=== PATIENT | female | born 1935 | race Caucasian/White ===

== ENCOUNTER 2017-11-05 14:54 | Emergency (ER) | payer OTHER, SELFPAY ==
[~2017-11-05] VITALS: Ht 152.4 cm; Wt 63.5 kg
[~2017-11-05 14:54] MED LIST: ALPR.5 PO; ALPR1 PO; ASPI81CH PO; BISA5EC; CEPH500 PO; CHLO25B PO; CHOL10002 PO; CITA20 PO; CRANBERRY 6,001 EACH; CYAN1000 PO; Celexa10 MG PO; DIPH25 PO; ESTR.1TPBW; ESTR.1TPBW TOP; ESTR.75 PO; FAMO20 PO; FISH1000; GABA800 PO; HYDRA25 PO; LEVSOD125 PO; LEVSOD175 PO; LISI20 PO; METH10 PO; METR70GEL VAG; MIRT15 PO; MIRT30 PO; MULTI VITAMIN1 EACH PO; MYRBETRIQ50 MG PO; OXYACE10 PO; OXYC10TA19 PO; PRED20 PO; SIMV10 PO; SIMV20 PO
[2017-11-05] MEDS ORDERED: MYRBETRIQ50 MG PO (15:42)
[2017-11-05 15:43] LABS: BASOPHILS ABSOLUTE AUTO 0.03 K/mm3 (0.00-0.23); BASOPHILS PERCENT AUTO 1 % (0-2); EOSINOPHILS PERCENT AUTO 0 % (0-6); Hematocrit 41.8 % (33.0-51.0); Hemoglobin 13.5 g/dL (11.5-16.0); IMMATURE GRAN ABSOLUTE AUTO 0.01 K/mm3 (0.00-0.10); IMMATURE GRAN PERCENT AUTO 0 % (0-1); LYMPHOCYTES ABSOLUTE AUTO 0.59 K/mm3 (0.84-5.20); LYMPHOCYTES PERCENT AUTO 11 % (21-46); MONOCYTES ABSOLUTE AUTO 0.32 K/mm3 (0.16-1.47); MONOCYTES PERCENT AUTO 6 % (4-13); Mean Corpuscular HGB Conc 32.3 g/dL (31.5-36.5); Mean Corpuscular Volume 90 fL (80-100); Mean Platelet Volume 10.7 fL (9.1-12.4); NEUTROPHILS ABSOLUTE AUTO 4.44 K/mm3 (1.96-9.15); NEUTROPHILS PERCENT AUTO 82 % (41-73); Platelet Count 265 K/mm3 (150-400); RDW Coefficient Variation 16.6 % (11.7-14.2); RDW Standard Deviation 54.9 fL (35.1-46.3); Red Blood Cell Count 4.66 M/mm3 (3.80-5.20); White Blood Cell Count 5.39 K/mm3 (4.00-11.30)
[2017-11-05] MEDS ORDERED: SIMV10 PO (15:43)
[2017-11-05 15:56] LABS: Alanine Aminotransfer (ALT/SGP 23 U/L (12-78); Albumin, Blood 3.8 g/dL (3.4-5.0); Albumin/Globulin Ratio 1.1 (0.8-1.8); Alk Phos 73 U/L (50-136); Anion Gap 11 mmol/L (6-16); Aspartate Aminotrans (AST/SGOT 36 U/L (12-37); Bilirubin, Total 0.9 mg/dL (0.1-1.0); Blood Urea Nitrogen 13 mg/dL (8-24); Bun/Creatinine Ratio 18.2 (12.0-20.0); CO2, Blood 22 mmol/L (21-32); Calcium, Blood 9.2 mg/dL (8.5-10.1); Chloride, Blood 105 mmol/L (98-108); Creatinine, Blood 0.72 mg/dL (0.40-1.00); Globulin, Blood 3.5 g/dL (2.2-4.0); Glomerular Filtration Rate >60 (60-); Glucose, Blood 129 mg/dL (70-99); Potassium, Blood 3.8 mmol/L (3.5-5.5); Sodium, Blood 138 mmol/L (136-145); Total Protein, Blood 7.3 g/dL (6.4-8.2)
[2017-11-05 17:27] LABS: Source, Urine Catheter
[2017-11-05 17:31] LABS: Appearance, Urine Hazy (Clear); Bilirubin, Urine Neg (Neg); Blood, Urine 3+ (Neg); Color, Urine Yellow (P-Yellow); Glucose Qualitative, Urine Neg (Neg); Ketones, Urine 4+ (Neg); Leukocyte Esterase, Urine 2+ (Neg); Nitrite, Urine Neg (Neg); Protein, Urine 1+ (Neg); Specific Gravity, Urine 1.015 (1.003-1.022); Urobilinogen, Urine 1+ (Normal)
[2017-11-05 17:38] LABS: Squamous Epithelial Cells Not Seen /hpf (Few)
[2017-11-05 17:39] LABS: Amorphous Mod (0-Heavy); Bacteria Mod /hpf
[2017-11-05] MEDS ORDERED: CEPH500 PO (18:15)
[2017-11-06] MEDS ORDERED: ONDA4ODT MM (09:41)
== END 2017-11-05 18:31 | disposition home or self-care (01) ==
LOC: ER 14:54
PROVIDERS: Physician Assistant
DX: N39.0 Urinary tract infection, site not specified (principal); F03.90 Unspecified dementia, unspecified severity, without behavioral disturbance, psychotic disturbance, mood disturbance, and anxiety; F41.9 Anxiety disorder, unspecified; E78.00 Pure hypercholesterolemia, unspecified; Z88.1 Allergy status to other antibiotic agents; Z88.2 Allergy status to sulfonamides; Z88.8 Allergy status to other drugs, medicaments and biological substances; Z79.899 Other long term (current) drug therapy; Z79.82 Long term (current) use of aspirin; Z90.710 Acquired absence of both cervix and uterus; Z90.49 Acquired absence of other specified parts of digestive tract
CPT/HCPCS: 36415; 51701; 71045; 80053; 81001; 83690; 84484; 85025; 87077; 87086; 87186; 93005; 93010; 99284

== ENCOUNTER 2017-11-05 18:58 | Inpatient (IN) | payer OTHER, SELFPAY ==
[~2017-11-05] VITALS: Ht 152.4 cm; Wt 74.1 kg
[2017-11-06] MEDS ORDERED: ONDA4ODT MM (09:41)
[2017-11-07 09:24] LABS: BASOPHILS ABSOLUTE AUTO 0.04 K/mm3 (0.00-0.23); BASOPHILS PERCENT AUTO 1 % (0-2); EOSINOPHILS ABSOLUTE AUTO 0.02 K/mm3 (0.00-0.68); EOSINOPHILS PERCENT AUTO 0 % (0-6); Hematocrit 39.3 % (33.0-51.0); Hemoglobin 12.9 g/dL (11.5-16.0); IMMATURE GRAN ABSOLUTE AUTO 0.02 K/mm3 (0.00-0.10); IMMATURE GRAN PERCENT AUTO 0 % (0-1); LYMPHOCYTES ABSOLUTE AUTO 1.09 K/mm3 (0.84-5.20); LYMPHOCYTES PERCENT AUTO 18 % (21-46); MONOCYTES ABSOLUTE AUTO 0.49 K/mm3 (0.16-1.47); MONOCYTES PERCENT AUTO 8 % (4-13); Mean Corpuscular HGB 29.9 pg (26.0-34.0); Mean Corpuscular HGB Conc 32.8 g/dL (31.5-36.5); Mean Corpuscular Volume 91 fL (80-100); NEUTROPHILS ABSOLUTE AUTO 4.58 K/mm3 (1.96-9.15); NEUTROPHILS PERCENT AUTO 73 % (41-73); Platelet Count 273 K/mm3 (150-400); RDW Coefficient Variation 17.5 % (11.7-14.2); RDW Standard Deviation 58.6 fL (35.1-46.3); Red Blood Cell Count 4.32 M/mm3 (3.80-5.20); White Blood Cell Count 6.24 K/mm3 (4.00-11.30)
[2017-11-07 09:42] LABS: Alanine Aminotransfer (ALT/SGP 20 U/L (12-78); Albumin, Blood 3.5 g/dL (3.4-5.0); Albumin/Globulin Ratio 1.1 (0.8-1.8); Alk Phos 59 U/L (50-136); Anion Gap 8 mmol/L (6-16); Aspartate Aminotrans (AST/SGOT 24 U/L (12-37); Bilirubin, Total 0.4 mg/dL (0.1-1.0); Blood Urea Nitrogen 14 mg/dL (8-24); Bun/Creatinine Ratio 18.1 (12.0-20.0); CO2, Blood 26 mmol/L (21-32); Calcium, Blood 8.7 mg/dL (8.5-10.1); Chloride, Blood 107 mmol/L (98-108); Creatinine, Blood 0.77 mg/dL (0.40-1.00); Globulin, Blood 3.2 g/dL (2.2-4.0); Glomerular Filtration Rate >60 (60-); Glucose, Blood 105 mg/dL (70-99); Potassium, Blood 3.7 mmol/L (3.5-5.5); Sodium, Blood 141 mmol/L (136-145); Total Protein, Blood 6.7 g/dL (6.4-8.2)
[2017-11-08 06:06] LABS: BASOPHILS ABSOLUTE AUTO 0.05 K/mm3 (0.00-0.23); BASOPHILS PERCENT AUTO 1 % (0-2); EOSINOPHILS ABSOLUTE AUTO 0.04 K/mm3 (0.00-0.68); EOSINOPHILS PERCENT AUTO 1 % (0-6); Hematocrit 37.8 % (33.0-51.0); Hemoglobin 12.2 g/dL (11.5-16.0); IMMATURE GRAN ABSOLUTE AUTO 0.01 K/mm3 (0.00-0.10); IMMATURE GRAN PERCENT AUTO 0 % (0-1); LYMPHOCYTES ABSOLUTE AUTO 1.59 K/mm3 (0.84-5.20); LYMPHOCYTES PERCENT AUTO 25 % (21-46); MONOCYTES ABSOLUTE AUTO 0.73 K/mm3 (0.16-1.47); MONOCYTES PERCENT AUTO 11 % (4-13); Mean Corpuscular HGB 29.6 pg (26.0-34.0); Mean Corpuscular HGB Conc 32.3 g/dL (31.5-36.5); Mean Corpuscular Volume 92 fL (80-100); Mean Platelet Volume 10.9 fL (9.1-12.4); NEUTROPHILS ABSOLUTE AUTO 4.04 K/mm3 (1.96-9.15); NEUTROPHILS PERCENT AUTO 63 % (41-73); Platelet Count 231 K/mm3 (150-400); RDW Coefficient Variation 17.2 % (11.7-14.2); RDW Standard Deviation 58.1 fL (35.1-46.3); Red Blood Cell Count 4.12 M/mm3 (3.80-5.20); White Blood Cell Count 6.46 K/mm3 (4.00-11.30)
[2017-11-08 06:31] LABS: Anion Gap 8 mmol/L (6-16); Blood Urea Nitrogen 13 mg/dL (8-24); Bun/Creatinine Ratio 16.9 (12.0-20.0); CO2, Blood 26 mmol/L (21-32); Calcium, Blood 8.3 mg/dL (8.5-10.1); Chloride, Blood 106 mmol/L (98-108); Creatinine, Blood 0.77 mg/dL (0.40-1.00); Glomerular Filtration Rate >60 (60-); Glucose, Blood 90 mg/dL (70-99); Potassium, Blood 3.6 mmol/L (3.5-5.5); Sodium, Blood 140 mmol/L (136-145)
[2017-11-09] MEDS ORDERED: Colace100 MG PO (10:21)
[2017-11-09] MEDS ORDERED: PANT20 PO (10:25)
[2017-11-09] MEDS ORDERED: ONDA4ODT MM (10:27)
[2017-11-09] MEDS ORDERED: AMLO5 PO (10:27)
[2017-11-11] MEDS ORDERED: CEPH500 PO (09:08)
== END 2017-11-11 11:12 | disposition home or self-care (01) | DRG 690 ==
LOC: ER 18:58 → MEDS 18:59 → EDPENDDIS 11-06 08:49 → ENPENDDIS 11-06 08:49 → MEDS 11-08 12:30 → EDPENDDISTM 11-09 09:48 → EDPENDDISDT 11-09 09:48 → EDPENDDIS 11-09 09:48 → MEDS 11-11 11:12
PROVIDERS: Internal Medicine
DX: N39.0 Urinary tract infection, site not specified (principal); G30.9 Alzheimer's disease, unspecified; F02.80 Dementia in other diseases classified elsewhere, unspecified severity, without behavioral disturbance, psychotic disturbance, mood disturbance, and anxiety; B96.20 Unspecified Escherichia coli [E. coli] as the cause of diseases classified elsewhere; I10 Essential (primary) hypertension; R26.9 Unspecified abnormalities of gait and mobility; R11.2 Nausea with vomiting, unspecified; E78.5 Hyperlipidemia, unspecified; E03.9 Hypothyroidism, unspecified; K21.9 Gastro-esophageal reflux disease without esophagitis; F41.9 Anxiety disorder, unspecified; E66.9 Obesity, unspecified; Z68.29 Body mass index [BMI] 29.0-29.9, adult; Z86.711 Personal history of pulmonary embolism; Z87.440 Personal history of urinary (tract) infections; Z88.1 Allergy status to other antibiotic agents; Z88.2 Allergy status to sulfonamides; Z88.8 Allergy status to other drugs, medicaments and biological substances; Z79.82 Long term (current) use of aspirin; Z79.899 Other long term (current) drug therapy; Z99.2 Dependence on renal dialysis
CPT/HCPCS: 36415; 74177; 80048; 80053; 85025; 96361; 96365; 96366; 96375; 96376; 97116; 97162; 97530; 99285; C9113; G0378; G8978; G8979; J0360; J0696; J2405; J2550; J7030; Q9967

== ENCOUNTER 2017-11-30 15:49 | Emergency (ER) | payer OTHER, SELFPAY ==
[~2017-11-30] VITALS: Ht 167.6 cm; Wt 72.6 kg
[~2017-11-30 15:49] MED LIST changes: +AMLO5 PO; +Colace100 MG PO; +ONDA4ODT MM; +PANT20 PO
[2017-11-30 16:30] LABS: BASOPHILS ABSOLUTE AUTO 0.05 K/mm3 (0.00-0.23); BASOPHILS PERCENT AUTO 1 % (0-2); EOSINOPHILS ABSOLUTE AUTO 0.36 K/mm3 (0.00-0.68); EOSINOPHILS PERCENT AUTO 6 % (0-6); Hematocrit 42.4 % (33.0-51.0); Hemoglobin 13.4 g/dL (11.5-16.0); IMMATURE GRAN ABSOLUTE AUTO 0.11 K/mm3 (0.00-0.10); IMMATURE GRAN PERCENT AUTO 2 % (0-1); LYMPHOCYTES ABSOLUTE AUTO 1.76 K/mm3 (0.84-5.20); LYMPHOCYTES PERCENT AUTO 28 % (21-46); MONOCYTES ABSOLUTE AUTO 0.68 K/mm3 (0.16-1.47); MONOCYTES PERCENT AUTO 11 % (4-13); Mean Corpuscular HGB 30.2 pg (26.0-34.0); Mean Corpuscular HGB Conc 31.6 g/dL (31.5-36.5); Mean Corpuscular Volume 96 fL (80-100); Mean Platelet Volume 9.8 fL (9.1-12.4); NEUTROPHILS ABSOLUTE AUTO 3.38 K/mm3 (1.96-9.15); NEUTROPHILS PERCENT AUTO 53 % (41-73); Platelet Count 360 K/mm3 (150-400); RDW Coefficient Variation 14.6 % (11.7-14.2); RDW Standard Deviation 51.1 fL (35.1-46.3); Red Blood Cell Count 4.44 M/mm3 (3.80-5.20); White Blood Cell Count 6.34 K/mm3 (4.00-11.30)
[2017-11-30 16:31] LABS: Anion Gap 7 mmol/L (6-16); Blood Urea Nitrogen 11 mg/dL (8-24); CO2, Blood 29 mmol/L (21-32); Calcium, Blood 8.7 mg/dL (8.5-10.1); Chloride, Blood 103 mmol/L (98-108); Creatinine, Blood 0.79 mg/dL (0.40-1.00); Glomerular Filtration Rate >60 (60-); Glucose, Blood 87 mg/dL (70-99); Potassium, Blood 4.4 mmol/L (3.5-5.5); Sodium, Blood 139 mmol/L (136-145)
== END 2017-11-30 20:01 | disposition short-term general hospital (02) ==
LOC: ER 15:49
PROVIDERS: Emergency Medicine
DX: S06.5X9A Traumatic subdural hemorrhage with loss of consciousness of unspecified duration, initial encounter (principal); S02.32XA Fracture of orbital floor, left side, initial encounter for closed fracture; S01.01XA Laceration without foreign body of scalp, initial encounter; Z88.8 Allergy status to other drugs, medicaments and biological substances; Z88.2 Allergy status to sulfonamides; Z79.899 Other long term (current) drug therapy; Z79.82 Long term (current) use of aspirin; Z79.2 Long term (current) use of antibiotics; W10.9XXA Fall (on) (from) unspecified stairs and steps, initial encounter
CPT/HCPCS: 12001; 70450; 72100; 72125; 80048; 85025; 90471; 90714; 96374; 96375; 99285; J2060; J2405

== ENCOUNTER → 2018-04-20 | Outpatient (CLI) | payer OTHER, SELFPAY | END | disposition home or self-care (01) | LOC: LAB 16:18 → LAB SHORT 16:18 | DX: N39.0 Urinary tract infection, site not specified (principal) | CPT/HCPCS: 87077; 87086; 87186 ==

== ENCOUNTER 2019-06-30 00:06 | Inpatient (IN) | payer OTHER ==
[~2019-06-30] VITALS: Ht 165.1 cm; Wt 77.0 kg
[2019-06-30 00:32] LABS: BASOPHILS ABSOLUTE AUTO 0.03 K/mm3 (0.00-0.23); BASOPHILS PERCENT AUTO 0 % (0-2); EOSINOPHILS ABSOLUTE AUTO 0.02 K/mm3 (0.00-0.68); EOSINOPHILS PERCENT AUTO 0 % (0-6); Hematocrit 42.9 % (33.0-51.0); Hemoglobin 14.5 g/dL (11.5-16.0); IMMATURE GRAN ABSOLUTE AUTO 0.03 K/mm3 (0.00-0.10); IMMATURE GRAN PERCENT AUTO 0 % (0-1); LYMPHOCYTES ABSOLUTE AUTO 0.81 K/mm3 (0.84-5.20); LYMPHOCYTES PERCENT AUTO 9 % (21-46); MONOCYTES PERCENT AUTO 6 % (4-13); Mean Corpuscular HGB 31.5 pg (26.0-34.0); Mean Corpuscular HGB Conc 33.8 g/dL (31.5-36.5); Mean Corpuscular Volume 93 fL (80-100); Mean Platelet Volume 11.4 fL (9.1-12.4); NEUTROPHILS ABSOLUTE AUTO 8.09 K/mm3 (1.96-9.15); NEUTROPHILS PERCENT AUTO 84 % (41-73); Platelet Count 252 K/mm3 (150-400); RDW Coefficient Variation 13.2 % (11.7-14.2); RDW Standard Deviation 44.8 fL (35.1-46.3); Red Blood Cell Count 4.61 M/mm3 (3.80-5.20); White Blood Cell Count 9.58 K/mm3 (4.00-11.30)
[2019-06-30 00:47] LABS: Alanine Aminotransfer (ALT/SGP 19 U/L (12-78); Albumin/Globulin Ratio 1.2 (0.8-1.8); Alk Phos 78 U/L (50-136); Anion Gap 11 mmol/L (6-16); Aspartate Aminotrans (AST/SGOT 23 U/L (12-37); Bilirubin, Total 0.6 mg/dL (0.1-1.0); Blood Urea Nitrogen 14 mg/dL (8-24); Bun/Creatinine Ratio 18.9 (12.0-20.0); CO2, Blood 24 mmol/L (21-32); Calcium, Blood 9.6 mg/dL (8.5-10.1); Chloride, Blood 103 mmol/L (98-108); Creatinine, Blood 0.74 mg/dL (0.40-1.00); Globulin, Blood 3.4 g/dL (2.2-4.0); Glomerular Filtration Rate >60 (60-); Glucose, Blood 137 mg/dL (70-99); Magnesium, Blood 2.2 mg/dL (1.6-2.4); Potassium, Blood 3.9 mmol/L (3.5-5.5); Sodium, Blood 138 mmol/L (136-145); Total Protein, Blood 7.4 g/dL (6.4-8.2); Troponin I <0.015 ng/mL (0.000-0.040)
[2019-06-30 02:00] LABS: Source, Urine Catheter
[2019-06-30 02:02] LABS: Bilirubin, Urine Neg (Neg); Blood, Urine 4+ (Neg); Glucose Qualitative, Urine Neg (Neg); Ketones, Urine 3+ (Neg); Leukocyte Esterase, Urine 1+ (Neg); Nitrite, Urine Neg (Neg); Protein, Urine Neg (Neg); Urobilinogen, Urine 1+ (Normal)
[2019-06-30 02:42] LABS: Appearance, Urine Hazy (Clear); Color, Urine Yellow (P-Yellow)
[2019-06-30 02:43] LABS: Bacteria Few /hpf; Red Blood Cells, Urine 25-50 /hpf (0-2); Squamous Epithelial Cells Few /hpf (Few); White Blood Cells, Urine 0-2 /hpf (0-5)
--- NOTE | 2019-06-30 05:19 | NUR ---
Shift summary: Pt admitted at 0400 for small bowel obstruction. Pt denies vomiting or diarhea since admission. No abdominal pain. Poor historian. Pt appears to be alert and oriented but her history does not agree with ER events at all. Pt has no idea why she is here. Pt pulled out two iv in er. Pt refuses any further iv. Pt up to bedside commode with one person assist. Pt can bear weight. Pt npo for now.
--- NOTE | 2019-06-30 07:38 | NUR ---
Med rec- Unable to get med reconcilliation verified. Pt has poor short term memory and does not know her meds. She cannot give me the name of the facility that she came from. No list of meds from ER in chart
--- NOTE | 2019-06-30 09:04 | NUR ---
PATIENT DID NOT EAT BREAKFAST THIS SHIFT DUE TO BEING NPO AT THIS TIME.
[2019-06-30] MEDS ORDERED: METH10 PO (11:37)
[2019-06-30] MEDS ORDERED: LISI20 PO (11:38)
[2019-06-30] MEDS ORDERED: Prinivil10 MG PO (11:41)
[2019-06-30] MEDS ORDERED: Vivelle-Dot1 EAC1 TD (11:43)
[2019-06-30] MEDS ORDERED: HYDR1TAB94 PO (11:45)
--- NOTE | 2019-06-30 13:17 | NUR ---
PATIENT DID NOT EAT LUNCH THIS SHIFT DUE TO BEING NPO AT THIS TIME.
--- NOTE | 2019-06-30 17:06 | NUR ---
SHE HAS BEEN COOPERATIVE. SHE IS OX3 BUT HAS VERY POOR SHORT TERM MEMORY. BOWEL REST HAS BEEN EXPLAINED TO HER MANY TIMES TODAY. SHE AGREED TO AN IV START THIS AM AND HAS FINISHED 1L OF IVF. WILL HANG THE 2ND ONE. SHE HAS BEEN UNABLE TO VOID. I NOTIFIED MD OF THAT AND UPDATED HER THAT THE PATIENT CONTINUES TO DENY ABD PAIN OR NAUSEA. PLAN TO KEEP HER NPO TODAY AND START CL'S IN THE AM. BLADDER SCAN SHOWED 778 MLS. I DRAINED 675 MLS FROM HER BLADDER BY STRAIGHT CATH. SMALL AMT OF BLOOD NOTED. URINE CLEMENTE. I DID GIVE HER ZOFRAN ONCE TODAY BECAUSE SHE PUT HER HAND OVER HER LUQ IF SPLINTING IT. SHE DENIED PAIN BUT USED THE WORD TIGHT AND QUICKLY SAID SHE HOPES SHE DOESN'T THROW UP LIKE YESTERDAY. MED REC WAS DONE BY THE CHARGE NURSE TODAY AFTER I ASKED HENRY WALTON AT HER [facility] TO FAX OVER THE INFORMATION. LABS WNL. SHE IS NOT ALWAYS OX3. SHE JUST ASKED ME WHERE WE ARE. SHE CANNOT BE A HISTORIAN FOR HERSELF EITHER. FOR INSTANCE, SHE HAS NO IDEA WHEN HER LAST BM WAS. WILL CONTINUE TO CARE FOR HER.
--- NOTE | 2019-06-30 18:08 | NUR ---
PATIENT DID NOT EAT DINNER THIS SHIFT DUE TO BEING NPO AT THIS TIME.
--- NOTE | 2019-07-01 03:58 | NUR ---
Shift summary> Pt very hungry and thirsty and does not understand why we are starving her. Pt does not understand bowel rest and has not had any nausea or vomiting last pm. No abdominal pain reported. Pt finished second liter of fluid and saline locked. Pt given earplugs to help with the noise level. Bowel sounds are active.
--- NOTE | 2019-07-01 09:05 | NUR ---
PATIENT DID NOT EAT BREAKFAST THIS SHIFT DUE TO BEING NPO AT THIS TIME.
--- NOTE | 2019-07-01 10:36 | NUR ---
TO RACHANA FOR SBFT. I EXPLAINED THE TEST TO HER.
--- NOTE | 2019-07-01 13:30 | NUR ---
PATIENT DID NOT EAT LUNCH THIS SHIFT DUE TO BEING NPO AT THIS TIME.
--- NOTE | 2019-07-01 16:41 | NUR ---
SHE HAS BEEN DISTRESSED ALL DAY ABOUT BEING HERE INSTEAD OF GOING HOME. HER SON HAS TALKED WITH HER ON THE PHONE. SHE LIKES HEARING FROM HIM. SHE HAD AN ORDER FOR A SBFT IN XRAY BUT AFTER DRINKING 2 OZ OF THE CONTRAST SHE REFUSED TO DRINK ANY MORE. THEY BROUGHT HER BACK UPSTAIRS. I HAD TO DC HER SL BECAUSE IT WAS NON-FUNCTIONAL. AFTER RECEIVING AN ORDER FOR ZORAHAT ODT, I GAVE HER A DOSE, HOPING SHE WOULD AGREE TO DRINK MORE CONTRAST. SHE DID NOT. XRAY CANCELLED THE TEST AND NOTIFIED . THEN ORDERED CLINIMIX. IV WAS RESTARTED AND CLINIMIX HUNG. SHE HAS HAD LITTLE ABDOMINAL PAIN TODAY. WHEN SHE HAS IT, IT IS ON THE LEFT. NO NAUSEA EXCEPT IMMEDIATELY AFTER DRINKING SOME OF THE CONTRAST. NO EMESIS. NO MORE BM AFTER HER INSIGHTS STRATEGIST ONE. SHE AMBULATED THE IRIZARRY WITH WALKER, GAITBELT AND 1 ASSIST. SHE IS NPO EXCEPT MEDS.
--- NOTE | 2019-07-01 17:24 | NUR ---
PATIENT DID NOT EAT DINNER THIS SHIFT DUE TO BEING NPO AT THIS TIME.
--- NOTE | 2019-07-01 18:41 | NUR ---
SHE VOIDED 300 MLS BEFORE AND AFTER A BLADDER SCAN THAT READ 775 MLS.
--- NOTE | 2019-07-02 04:07 | NUR ---
SHIFT SUMMARY- PT. AWAKE AND RESTLESS T/O SHIFT, ALERT AND PLEASANTLY CONFUSED. UP TO BATHROOM WITH 1 ASSIST AND WALKER SEVERAL TIMES T/O THE NIGHT. VOIDING WELL. PT. PULLED PUT IV WHILE IN THE BATHROOM AND SITTING ON THE TOILET. NEW IV ACCESS OBTAINED, TOLERATED WELL. PT. IMPULSIVE, ATTEMPTS TO GET OUT OF BED PERIODICALLY. SELIN MONITOR ON IN HER ROOM. REMAINS NPO FOR POSSIBLE TESTS TODAY. PT. DENIES ANY PAIN OR DISCOMFORT. NO APPARENT DISTRESS NOTED. PT/OT SCEHDULED TO WORK WITH PT. TODAY. CALL LIGHT WITHIN REACH, SIDE RAILS UP X3, AND BED ALARM ON. WILL CONT TO MONITOR.
[2019-07-02 05:16] LABS: Albumin, Blood 3.3 g/dL (3.4-5.0); Anion Gap 7 mmol/L (6-16); Blood Urea Nitrogen 17 mg/dL (8-24); Bun/Creatinine Ratio 25.8 (12.0-20.0); CO2, Blood 26 mmol/L (21-32); Calcium, Blood 8.7 mg/dL (8.5-10.1); Chloride, Blood 105 mmol/L (98-108); Creatinine, Blood 0.66 mg/dL (0.40-1.00); Glomerular Filtration Rate >60 (60-); Glucose, Blood 94 mg/dL (70-99); Potassium, Blood 3.6 mmol/L (3.5-5.5); Sodium, Blood 138 mmol/L (136-145)
--- NOTE | 2019-07-02 14:48 | NUR ---
SUMM- PT ALART TO SELF ONLY. IMPULSSIVE AND FORGETFUL. UP TO BATHROOM SBA. HAD XL HARD BOWEL MOVEMENT TODAY. HAD NAUSEA CONTINUOUSLY. ZOFRAN WITH MIN RELEIF. STATED TENDERNESS IN ABD WITH LIGHT PALP. NORMOACTIVE BT'S. CONT NPO THIS SHIFT. GETTING CLINIMIX IVF.
--- NOTE | 2019-07-03 04:20 | NUR ---
SHIFT SUMMARY- NO ACUTE EVENTS OVERNIGHT. PT. SLEPT ON/OFF T/O SHIFT. IV STILL IN PLACE, CLINIMAX RUNNING. CALL LIGHT WITHIN REACH, SIDE RAILS UP X2, AND BED ALARM ON. WILL CONT TO MONITOR.
--- NOTE | 2019-07-03 12:09 | NUR ---
Patient's son Moris called for updates on pt. Updates provided: anxious, restless, abdominal x-ray done, and patient now on clear liquid diet.
--- NOTE | 2019-07-03 17:12 | NUR ---
Shift Summary A/O x 2, has been cooperative t/o day; however shift began with pt being restless and anxious. Dangle w/o assistance and calls appropriately. 1P FWW to bathroom, continent. Sometimes forgetful, reoriented easily. Medicated for nausea x 1 per EMAR. Upright for all meals. Afebrile, hypertension treated per EMAR. No other acute changes this shift.
--- NOTE | 2019-07-03 18:26 | NUR ---
Spiritual Care intial note: Filomena was sitting up in chair and welcoming of companionship and conversation. She told me her 2 weeks ago. She was tearful as she told me about his . She also stated she has been living alone, but her son is going to move her in with him post-hospitalization. According to chart, pt has been living in foster care. Regardless, I provided bereavement field counsel and comfort to good effect. We also spoke about her life, and she shared little jokes with me. We had an easy rapport and she verbalized appreciation for visit. Apparently, she has a difficult time figuring out how to answer the bedside phone when it rings. She asked me to call her son. He called back while I was in room and they were having a william conversation when I left. I will continue to visit Gloria as case-load permits.
--- NOTE | 2019-07-04 03:39 | NUR ---
SHIFT SUMMARY- PT. PLEASANTLY CONFUSED, AWAKE MOST OF THE NIGHT, SITTING UP IN BED. DENIES ANY PAIN OR DISCOMFORT. NO APPARENT DISTRESS NOTED. PLACED ON CLEAR LIQUIDS TODAY, TOLERATING WELL. NO C/O NAUSEA. UP TO BATHROOM X1 ASSIST WITH WALKER. VOIDED SEVERAL TIMES T/O THE NIGHT, NO BM THIS EVENING. CALL LIGHT WITHIN REACH, SIDE RAILS UP X2, AND BED ALARM ON. WILL CONT TO MONITOR.
--- NOTE | 2019-07-04 17:29 | NUR ---
Shift Summary Pleasantly confused t/o shift. Worked c PT this morning. Tolerating Full Liquids well. Medicated for nausea x 1 and R knee pain x 1 per EMAR. No c/o diarrhea or vomiting. Ambulated in hallway multiple times, up in chair for meals, 1p FWW to bathroom. Pt c/o lower abdominal pain on palpation. No other acute changes this shift.
--- NOTE | 2019-07-04 18:33 | NUR ---
Add (Shift Summary) Pt c/o being "sick to my stomach." Medicated once more for nausea.
--- NOTE | 2019-07-04 18:44 | NUR ---
Spiritual Care note: Aditi conversation with Gloria today. We have a good rapport and she is appreciative of conversation and companionship. She is not denominational, but allowed a prayer today. [employer] services will remain available.
--- NOTE | 2019-07-05 04:48 | NUR ---
SHIFT SUMMARY: KENDRICK IS A 83 Y/O FEMALE, WHO IS PLEASANTLY CONFUSED. SHE IS ALERT ONLY TO SELF WITH WORSENING CONFUSION THE NIGHT WENT ON. SHE WAS AWAKE 90% OF THE NIGHT UP AND DOWN TO THE SIDE OF THE BED, RUBBING HER RIGHT KNEE STATING SHE HAD TO GET THINGS DONE. SHE USED THE CALL LIGHT APPROPRIATLY 80% OF THE TIME BUT WAS CONFUSED ON WHERE SHE WAS AT, STATING SHE HAD TO GET THINGS PUT AWAY UNDER HER BED. CALLED MD TO FOR PAIN MEDICATIONS SHE CONTINUED TO STATE HER KNEE HURT AND DID NOT EVEN WANT ANYONE TOUCHING IT. GAVE HER 25MCQ OF FENTANYL WHICH SHE SLEPT FOR ONLY A FEW MINUTES. ENDED UP GIVING HER ANOTHER DOSE OF FENTANYL ABOUT AN HOUR AFTERWARDS. THIS STILL DID NOT HELP HER TO SLEEP. THEREFORE APPLIED A HEATING PAD TO HER LEG, WHICH SHE STATED DID IMPROVE, ALONG WITH REPOSITIONING CONSTANTLY. BUT SHE STILL WAS RESTLESS AND INSISTED SHE HAD TO PUT THINGS AWAY. BED ALARM STAYED ON, CALL LIGHT REMAINED IN REACH, 3 RAILS WERE PUT UP TO HELP KEEP HER FROM FALLLING OUT OF BED. WAS IN AND OUT OF THE ROOM ALMOST EVERY HOUR HELPING TO REDIRECT AND DISTRACT HER TO WHERE SHE MIGHT SLEEP. WILL REPORT TO DAY SHIFT OF THE NIGHT EVENTS.
--- NOTE | 2019-07-05 06:29 | NUR ---
PATIENT WALKED WITH WALKER IN HALLWAY TO THE NURSE STATION AND BACK TO BED X 2.
--- NOTE | 2019-07-05 10:32 | NUR ---
0950 VERIFIED WITH AMEL AT [facility] THE DOSAGE AND FREQUENCY OF PT'S HOME METHADONE DOSE (10MG METHADONE TID)
--- NOTE | 2019-07-05 14:11 | NUR ---
INFORMED DR MORALES OF PT'S TACHYCARDIA (100-115 AT REST) AND DIZZYNESS WITH STANDING. SHE IS ORDERING ABD XR
--- NOTE | 2019-07-05 16:45 | NUR ---
CALLED DR MORALES, INFORMED OF PT'S DIZZINESS WHILE LYING IN BED, HER NAUSEA, AND HER ABOMINAL PAIN. SHE IS WRITING FOR CLINIMIX OVERNIGHT. ZOFRAN AND TYLENOL GIVEN ALREADY, AND PT NOW ON METHADONE
--- NOTE | 2019-07-05 17:33 | NUR ---
AMBULATED PT FROM CHAIR TO BED. CDI. SETTLED TO BED.
--- NOTE | 2019-07-06 05:02 | NUR ---
SHIFT SUMMARY: 83 Y/O FEMALE, PLEASANTLY CONFUSED, WITH PERIODS OF INCREASE AGGITATION AT THE BEGINNING OF THE SHIFT. CONTINUING TO GET UP OUT OF BED WITH HER BEING A FALL RISK. STAFF WAS IN AND OUT OF HER ROOM ON MULTIPLE OCCATIONS TO PREVENT A FALL OR INJURY. EVENTUALLY XANAX WAS GIVEN TO HELP CALM HER DOWN., CLINIMEX WAS STARTED AT BEGINNING OF SHIFT AND INFUSED WELL THROUGHOUT THE NIGHT. SHE EVENTUALLY CALMED DOWN AND SLEPT WELL TILL AROUND 4AM THEN SHE WOKE FOR BATHROOM, AND GOT UP. THEN LAID DOWN TO SLEEP TILL LAB WOKE HER. SHE EVENTUALLY TRIED TO GO TO SLEEP BUT WAS AWAKE OFF AND ON THE REST OF THE SHIFT. WILL REPORT TO DAY SHIFT RN.
[2019-07-06 05:47] LABS: Hemoglobin 13.5 g/dL (11.5-16.0); Mean Corpuscular HGB 31.1 pg (26.0-34.0); Mean Corpuscular HGB Conc 33.8 g/dL (31.5-36.5); Mean Corpuscular Volume 92 fL (80-100); Mean Platelet Volume 10.9 fL (9.1-12.4); Platelet Count 254 K/mm3 (150-400); RDW Coefficient Variation 13.3 % (11.7-14.2); RDW Standard Deviation 44.7 fL (35.1-46.3); Red Blood Cell Count 4.34 M/mm3 (3.80-5.20); White Blood Cell Count 5.25 K/mm3 (4.00-11.30)
[2019-07-06 06:08] LABS: Albumin, Blood 3.5 g/dL (3.4-5.0); Anion Gap 5 mmol/L (6-16); Blood Urea Nitrogen 18 mg/dL (8-24); Bun/Creatinine Ratio 29.6 (12.0-20.0); CO2, Blood 29 mmol/L (21-32); Calcium, Blood 8.9 mg/dL (8.5-10.1); Chloride, Blood 103 mmol/L (98-108); Creatinine, Blood 0.61 mg/dL (0.40-1.00); Glomerular Filtration Rate >60 (60-); Glucose, Blood 84 mg/dL (70-99); Phosphorus, Blood 3.7 mg/dL (2.5-4.9); Potassium, Blood 4.1 mmol/L (3.5-5.5); Sodium, Blood 137 mmol/L (136-145)
--- NOTE | 2019-07-06 09:55 | NUR ---
PT PLEASANT COOP A/O X2 CONFUSED AT TIMES. ANXIOUS AT TIMES. HX DEMENTIA. HR REG, NO MURMER NOTED. NO TELE. LUNGS CLEAR, RESP EASY UNLABORED. ON R/A. BT X4 LAST BM YEST. AND A SMALL BM TODAY PER PT. VOIDS PER BSC, 1 ASST WITH GAITE BELT. BED IN LOW POSITION, CALL LITE IN REACH, BED ALARM ON FOR SAFETY. CALLS REGULARLY OFTEN FORGETTING WHAT WANTS.
--- NOTE | 2019-07-06 11:06 | NUR ---
Clinical Visit: Pt is alert, oriented, appropriate. She is oriented X3 at this time, she is aware of her surroundings, and states, "I was having trouble with my tummy, but I'm better now." She has eaten over half of her breakfast tray and not experiencing nausea, bloating. She states that she has been hungry and now that she is better, she would like to "get out of here." She states that her anxiety is very high, she is coping but reports, "it's difficult." Reviewed with nurse Cyrus. Pt will need to demonstrate tolerance with diet before able to discharge. She has had a couple bowel movements now. Reviewed my conversation with pt's son yesterday and plans to follow up with him today. Pt may have an existing advance directive, which the son is trying to find. He is in poor health himself and very limited on function at this time. He belives that pt's desired code status is DNR, but would like to attempt finding the advance directive and speak with is . Pt may be able to give her input today, as she is conversing normally and doesn't appear to be impaired with decision making of this kind at this time. Will follow up as able.
[2019-07-06] MEDS ORDERED: ASPI81CH PO (15:38)
[2019-07-06] MEDS ORDERED: TROSPIUM CHLORI20 MG PO (15:39)
--- NOTE | 2019-07-06 16:36 | NUR ---
PT DISCHARGE REVIEWED WITH PT. IV PULLED INTACT. PT VERBALIZED UNDERSTANDING OF MEDS AND INSTRUCTIONS. NO TELE. PT WHEELED OUT BY TRANSPORT AT 1437
== END 2019-07-06 16:40 | disposition home health service (06) | DRG 388 ==
LOC: ER 00:06 → MEDS 04:07 → ENPENDDIS 07-06 15:45 → MEDS 07-06 16:40
PROVIDERS: Emergency Medicine; Internal Medicine; ADMIT Hospitalist
DX: K56.609 Unspecified intestinal obstruction, unspecified as to partial versus complete obstruction (principal); G92 Toxic encephalopathy; G30.9 Alzheimer's disease, unspecified; F02.80 Dementia in other diseases classified elsewhere, unspecified severity, without behavioral disturbance, psychotic disturbance, mood disturbance, and anxiety; F41.9 Anxiety disorder, unspecified; I10 Essential (primary) hypertension; K21.9 Gastro-esophageal reflux disease without esophagitis; E03.9 Hypothyroidism, unspecified; Z74.09 Other reduced mobility; E78.5 Hyperlipidemia, unspecified; G89.4 Chronic pain syndrome; Z88.1 Allergy status to other antibiotic agents; Z88.2 Allergy status to sulfonamides; Z88.8 Allergy status to other drugs, medicaments and biological substances; Z86.711 Personal history of pulmonary embolism; Z87.440 Personal history of urinary (tract) infections; Z79.82 Long term (current) use of aspirin; Z79.899 Other long term (current) drug therapy
CPT/HCPCS: 36415; 71045; 74018; 74176; 80053; 80069; 81001; 83605; 83690; 83735; 83880; 84145; 84484; 85025; 85027; 87040; 87086; 93005; 93010; 96361; 96374; 96375; 97162; 97165; 97530; 97535; 99285-25; A9270; C9113; J0360; J1200; J1630; J1650; J2405; J3010; J7030; P9612

== ENCOUNTER 2019-09-24 21:03 | Emergency (ER) | payer OTHER ==
[~2019-09-24] VITALS: Ht 165.1 cm; Wt 77.1 kg
[~2019-09-24 21:03] MED LIST changes: -Celexa10 MG PO; +HYDR1TAB94 PO; +LEVSOD100 PO; -LEVSOD125 PO; +Prinivil10 MG PO; +TROSPIUM CHLORI20 MG PO; +Vivelle-Dot1 EAC1 TD
[2019-09-24] MEDS ORDERED: ATOR20 PO (21:24)
[2019-09-24] MEDS ORDERED: DOCU100 PO (21:25)
[2019-09-24] MEDS ORDERED: POTA20PAC PO (21:26)
[2019-09-24 21:28] LABS: BASOPHILS ABSOLUTE AUTO 0.02 K/mm3 (0.00-0.23); BASOPHILS PERCENT AUTO 0 % (0-2); EOSINOPHILS ABSOLUTE AUTO 0.02 K/mm3 (0.00-0.68); EOSINOPHILS PERCENT AUTO 0 % (0-6); Hematocrit 38.8 % (33.0-51.0); Hemoglobin 13.2 g/dL (11.5-16.0); IMMATURE GRAN ABSOLUTE AUTO 0.02 K/mm3 (0.00-0.10); IMMATURE GRAN PERCENT AUTO 0 % (0-1); LYMPHOCYTES ABSOLUTE AUTO 0.87 K/mm3 (0.84-5.20); LYMPHOCYTES PERCENT AUTO 15 % (21-46); MONOCYTES ABSOLUTE AUTO 0.58 K/mm3 (0.16-1.47); MONOCYTES PERCENT AUTO 10 % (4-13); Mean Corpuscular HGB 31.9 pg (26.0-34.0); Mean Corpuscular Volume 94 fL (80-100); Mean Platelet Volume 11.3 fL (9.1-12.4); NEUTROPHILS ABSOLUTE AUTO 4.21 K/mm3 (1.96-9.15); NEUTROPHILS PERCENT AUTO 74 % (41-73); Platelet Count 218 K/mm3 (150-400); RDW Coefficient Variation 13.2 % (11.7-14.2); RDW Standard Deviation 45.4 fL (35.1-46.3); Red Blood Cell Count 4.14 M/mm3 (3.80-5.20); White Blood Cell Count 5.72 K/mm3 (4.00-11.30)
[2019-09-24 21:46] LABS: Alanine Aminotransfer (ALT/SGP 17 U/L (12-78); Albumin, Blood 3.3 g/dL (3.4-5.0); Alk Phos 75 U/L (50-136); Anion Gap 9 mmol/L (6-16); Aspartate Aminotrans (AST/SGOT 20 U/L (12-37); Bilirubin, Total 0.6 mg/dL (0.1-1.0); Blood Urea Nitrogen 18 mg/dL (8-24); Bun/Creatinine Ratio 24.6 (12.0-20.0); CO2, Blood 23 mmol/L (21-32); Chloride, Blood 106 mmol/L (98-108); Creatinine, Blood 0.73 mg/dL (0.40-1.00); Globulin, Blood 3.3 g/dL (2.2-4.0); Glomerular Filtration Rate >60 (60-); Glucose, Blood 103 mg/dL (70-99); Potassium, Blood 3.2 mmol/L (3.5-5.5); Sodium, Blood 138 mmol/L (136-145); Total Protein, Blood 6.6 g/dL (6.4-8.2)
[2019-09-24] MEDS ORDERED: Magnesium Citr296 ML PO (23:46)
[2019-09-24] MEDS ORDERED: dulcolax PR (23:46)
== END 2019-09-25 01:01 | disposition home or self-care (01) ==
LOC: ER 21:03
PROVIDERS: Emergency Medicine
DX: K59.00 Constipation, unspecified (principal); F03.90 Unspecified dementia, unspecified severity, without behavioral disturbance, psychotic disturbance, mood disturbance, and anxiety; F41.9 Anxiety disorder, unspecified; E78.5 Hyperlipidemia, unspecified; E03.9 Hypothyroidism, unspecified; Z88.1 Allergy status to other antibiotic agents; Z88.2 Allergy status to sulfonamides; Z88.8 Allergy status to other drugs, medicaments and biological substances; Z79.899 Other long term (current) drug therapy; Z79.82 Long term (current) use of aspirin
CPT/HCPCS: 74176; 80053; 83690; 85025; 93005; 93010; 96361; 96374; 96375; 99285-25; J2270; J2405; J7030

== ENCOUNTER → 2020-04-29 | Outpatient (CLI) | payer OTHER ==
[~2020-04-29] MED LIST changes: +ATOR20 PO; +DOCU100 PO; +Magnesium Citr296 ML PO; +POTA20PAC PO; +dulcolax PR
[2020-04-30 15:02] LABS: Bilirubin, Urine Neg (Neg); Blood, Urine 1+ (Neg); Glucose Qualitative, Urine Neg (Neg); Ketones, Urine Neg (Neg); Leukocyte Esterase, Urine 3+ (Neg); Nitrite, Urine Pos (Neg); Protein, Urine Neg (Neg); Urobilinogen, Urine NORM (Normal)
[2020-04-30 15:10] LABS: Appearance, Urine Clear (Clear); Color, Urine Pale Yellow (P-Yellow)
[2020-04-30 15:12] LABS: Bacteria Many /hpf; Red Blood Cells, Urine 0-2 /hpf (0-2); Squamous Epithelial Cells Rare /hpf (Few)
== END | disposition home or self-care (01) ==
LOC: LAB 09:15 → LAB SHORT 09:15
PROVIDERS: Family Medicine
DX: N39.0 Urinary tract infection, site not specified (principal)
CPT/HCPCS: 81001; 87077; 87086; 87186

== ENCOUNTER → 2020-06-08 | Outpatient (CLI) | payer OTHER ==
[2020-06-09 14:12] LABS: Bilirubin, Urine Neg (Neg); Blood, Urine 2+ (Neg); Glucose Qualitative, Urine Neg (Neg); Ketones, Urine Neg (Neg); Leukocyte Esterase, Urine 3+ (Neg); Nitrite, Urine Neg (Neg); Protein, Urine Neg (Neg); Urobilinogen, Urine NORM (Normal)
[2020-06-09 14:25] LABS: Appearance, Urine Hazy (Clear); Color, Urine Yellow (P-Yellow)
[2020-06-09 14:26] LABS: Bacteria Few /hpf; Squamous Epithelial Cells Few /hpf (Few); White Blood Cells, Urine TNTC /hpf (0-5)
== END ==
LOC: LAB 21:15 → LAB SHORT 21:15
PROVIDERS: Family Medicine
DX: N39.0 Urinary tract infection, site not specified (principal)
CPT/HCPCS: 81001; 87077; 87086; 87186

== ENCOUNTER → 2020-07-17 | Outpatient (CLI) | payer OTHER ==
[2020-07-17 20:27] LABS: BASOPHILS ABSOLUTE AUTO 0.04 K/mm3 (0.00-0.23); BASOPHILS PERCENT AUTO 1 % (0-2); EOSINOPHILS ABSOLUTE AUTO 0.15 K/mm3 (0.00-0.68); EOSINOPHILS PERCENT AUTO 3 % (0-6); Hematocrit 40.9 % (33.0-51.0); Hemoglobin 12.9 g/dL (11.5-16.0); IMMATURE GRAN ABSOLUTE AUTO 0.01 K/mm3 (0.00-0.10); IMMATURE GRAN PERCENT AUTO 0 % (0-1); LYMPHOCYTES PERCENT AUTO 24 % (21-46); MONOCYTES PERCENT AUTO 13 % (4-13); Mean Corpuscular HGB 31.2 pg (26.0-34.0); Mean Corpuscular HGB Conc 31.5 g/dL (31.5-36.5); Mean Corpuscular Volume 99 fL (80-100); NEUTROPHILS ABSOLUTE AUTO 3.17 K/mm3 (1.96-9.15); NEUTROPHILS PERCENT AUTO 59 % (41-73); Platelet Count 244 K/mm3 (150-400); RDW Coefficient Variation 13.5 % (11.7-14.2); RDW Standard Deviation 49.6 fL (35.1-46.3); Red Blood Cell Count 4.14 M/mm3 (3.80-5.20); White Blood Cell Count 5.37 K/mm3 (4.00-11.30)
[2020-07-17 21:19] LABS: Alanine Aminotransfer (ALT/SGP 19 U/L (12-78); Albumin, Blood 3.4 g/dL (3.4-5.0); Albumin/Globulin Ratio 0.9 (0.8-1.8); Alk Phos 76 U/L (50-136); Anion Gap 7 mmol/L (6-16); Aspartate Aminotrans (AST/SGOT 18 U/L (12-37); Bilirubin, Total 0.6 mg/dL (0.1-1.0); Blood Urea Nitrogen 17 mg/dL (8-24); Bun/Creatinine Ratio 24.6 (12.0-20.0); CHOL/HDL RATIO 3.5; CO2, Blood 28 mmol/L (21-32); Chloride, Blood 106 mmol/L (98-108); Cholesterol 205 mg/dL (50-200); Creatinine, Blood 0.69 mg/dL (0.40-1.00); Globulin, Blood 3.8 g/dL (2.2-4.0); Glomerular Filtration Rate >60 (60-); Glucose, Blood 70 mg/dL (70-99); HDL Cholesterol 59 mg/dL (>39); LDL/HDL RATIO 2.2; Low Density Lipoprotein Chol 128 mg/dL (0-110); Sodium, Blood 141 mmol/L (136-145); Total Protein, Blood 7.2 g/dL (6.4-8.2); Triglycerides 88 mg/dL (30-160); Very Low Density Lipoprot Chol 17 mg/dL (6-32)
== END | disposition home or self-care (01) ==
LOC: LAB 19:26 → LAB SHORT 19:26
PROVIDERS: Family Medicine
DX: E03.9 Hypothyroidism, unspecified (principal); E78.5 Hyperlipidemia, unspecified; I10 Essential (primary) hypertension; F03.91 Unspecified dementia, unspecified severity, with behavioral disturbance
CPT/HCPCS: 80053; 80061; 84436; 84443; 85025

== ENCOUNTER → 2020-09-17 | Outpatient (CLI) | payer OTHER ==
[2020-09-17 19:36] LABS: Free Thyroxine 1.27 ng/dL (0.70-1.60)
[2020-09-17 19:37] LABS: Thyroid Stimulating Hormone 4.93 uIU/mL (0.360-4.800)
== END | disposition home or self-care (01) ==
LOC: LAB 15:20
PROVIDERS: Family Medicine
DX: Z51.81 Encounter for therapeutic drug level monitoring (principal); E03.9 Hypothyroidism, unspecified; Z79.899 Other long term (current) drug therapy
CPT/HCPCS: 84439; 84443

== ENCOUNTER → 2021-02-11 | Outpatient (CLI) | payer OTHER ==
[2021-02-11 20:34] LABS: Free Thyroxine 1.1 ng/dL (0.70-1.60)
[2021-02-11 20:36] LABS: Thyroid Stimulating Hormone 1.77 uIU/mL (0.360-4.800)
== END | disposition home or self-care (01) ==
LOC: LAB SHORT 19:36
PROVIDERS: Family Medicine
DX: I10 Essential (primary) hypertension (principal); E03.9 Hypothyroidism, unspecified; E78.5 Hyperlipidemia, unspecified
CPT/HCPCS: 84439; 84443

== ENCOUNTER → 2021-04-15 | Outpatient (CLI) | payer OTHER ==
[2021-04-15 16:48] LABS: Alanine Aminotransfer (ALT/SGP 21 U/L (12-78); Albumin, Blood 3.3 g/dL (3.4-5.0); Albumin/Globulin Ratio 0.8 (0.8-1.8); Alk Phos 95 U/L (50-136); Anion Gap 3 mmol/L (6-16); Aspartate Aminotrans (AST/SGOT 21 U/L (12-37); Bilirubin, Total 0.5 mg/dL (0.1-1.0); Blood Urea Nitrogen 14 mg/dL (8-24); Bun/Creatinine Ratio 17.5 (12.0-20.0); CHOL/HDL RATIO 4.1; CO2, Blood 29 mmol/L (21-32); Calcium, Blood 8.7 mg/dL (8.5-10.1); Chloride, Blood 109 mmol/L (98-108); Cholesterol 207 mg/dL (50-200); Glomerular Filtration Rate >60 (60-); Glucose, Blood 90 mg/dL (70-99); HDL Cholesterol 51 mg/dL (>39); LDL/HDL RATIO 2.8; Low Density Lipoprotein Chol 140 mg/dL (0-110); Sodium, Blood 141 mmol/L (136-145); Total Protein, Blood 7.3 g/dL (6.4-8.2); Triglycerides 78 mg/dL (30-160); Very Low Density Lipoprot Chol 15 mg/dL (6-32)
[2021-04-15 16:58] LABS: BASOPHILS ABSOLUTE AUTO 0.03 K/mm3 (0.00-0.23); BASOPHILS PERCENT AUTO 1 % (0-2); EOSINOPHILS PERCENT AUTO 2 % (0-6); Hematocrit 39.4 % (33.0-51.0); Hemoglobin 12.7 g/dL (11.5-16.0); IMMATURE GRAN ABSOLUTE AUTO 0.01 K/mm3 (0.00-0.10); IMMATURE GRAN PERCENT AUTO 0 % (0-1); LYMPHOCYTES ABSOLUTE AUTO 0.85 K/mm3 (0.84-5.20); LYMPHOCYTES PERCENT AUTO 16 % (21-46); MONOCYTES ABSOLUTE AUTO 0.46 K/mm3 (0.16-1.47); MONOCYTES PERCENT AUTO 9 % (4-13); Mean Corpuscular HGB 30.8 pg (26.0-34.0); Mean Corpuscular HGB Conc 32.2 g/dL (31.5-36.5); Mean Corpuscular Volume 96 fL (80-100); Mean Platelet Volume 12.2 fL (9.1-12.4); NEUTROPHILS ABSOLUTE AUTO 3.96 K/mm3 (1.96-9.15); NEUTROPHILS PERCENT AUTO 73 % (41-73); Platelet Count 287 K/mm3 (150-400); RDW Coefficient Variation 13.6 % (11.7-14.2); RDW Standard Deviation 48.1 fL (35.1-46.3); Red Blood Cell Count 4.12 M/mm3 (3.80-5.20); White Blood Cell Count 5.41 K/mm3 (4.00-11.30)
== END ==
LOC: LAB SHORT 12:50 → LAB 12:50
PROVIDERS: Family Medicine
DX: E78.5 Hyperlipidemia, unspecified (principal); F03.90 Unspecified dementia, unspecified severity, without behavioral disturbance, psychotic disturbance, mood disturbance, and anxiety; E03.9 Hypothyroidism, unspecified; I10 Essential (primary) hypertension; Z88.1 Allergy status to other antibiotic agents; Z88.4 Allergy status to anesthetic agent; Z88.2 Allergy status to sulfonamides
CPT/HCPCS: 80053; 80061; 85025

== ENCOUNTER → 2021-09-30 | Outpatient (CLI) | payer OTHER ==
[2021-09-30 20:27] LABS: Thyroxine (T4) 9.1 ug/dL (4.8-13.9)
[2021-09-30 20:29] LABS: Thyroid Stimulating Hormone 9.45 uIU/mL (0.360-4.800)
== END ==
LOC: LAB SHORT 13:50
PROVIDERS: Family Medicine
DX: E03.9 Hypothyroidism, unspecified (principal)
CPT/HCPCS: 84436; 84443

== ENCOUNTER → 2021-11-12 | Outpatient (CLI) | payer OTHER ==
[2021-11-12 16:19] LABS: Thyroxine (T4) 10.8 ug/dL (4.8-13.9)
[2021-11-12 16:22] LABS: Thyroid Stimulating Hormone 1.79 uIU/mL (0.360-4.800)
== END | disposition home or self-care (01) ==
LOC: LAB SHORT 14:30
PROVIDERS: Family Medicine
DX: E03.9 Hypothyroidism, unspecified (principal)
CPT/HCPCS: 84436; 84443

== ENCOUNTER → 2021-12-09 | Outpatient (CLI) | payer OTHER ==
[2021-12-09 13:34] LABS: Appearance, Urine Clear (Clear); Bilirubin, Urine Neg (Neg); Blood, Urine Neg (Neg); Color, Urine Yellow (P-Yellow); Glucose Qualitative, Urine Neg (Neg); Ketones, Urine Neg (Neg); Leukocyte Esterase, Urine 2+ (Neg); Nitrite, Urine Neg (Neg); Protein, Urine 1+ (Neg); Urobilinogen, Urine NORM (Normal)
[2021-12-09 15:26] LABS: Bacteria Mod /hpf; Red Blood Cells, Urine 0-2 /hpf (0-2); Squamous Epithelial Cells Rare /hpf (Few)
[2021-12-09 15:27] LABS: Amorphous Light (0-Heavy); Mucus Light (0-Heavy)
== END ==
LOC: LAB 02:30 → LAB SHORT 02:30
PROVIDERS: Family Medicine
DX: N39.0 Urinary tract infection, site not specified (principal)
CPT/HCPCS: 81001

== ENCOUNTER → 2022-03-03 | Outpatient (CLI) | payer OTHER ==
[2022-03-03 13:02] LABS: Source, Urine Clean Catch
[2022-03-03 15:27] LABS: Appearance, Urine Hazy (Clear); Bilirubin, Urine Neg (Neg); Blood, Urine 1+ (Neg); Color, Urine Yellow (P-Yellow); Glucose Qualitative, Urine Neg (Neg); Ketones, Urine Neg (Neg); Leukocyte Esterase, Urine 3+ (Neg); Nitrite, Urine Pos (Neg); Protein, Urine Neg (Neg); Urobilinogen, Urine NORM (Normal); pH, Urine 6.5 (5.0-8.0)
[2022-03-03 15:41] LABS: Bacteria Many /hpf; Squamous Epithelial Cells Mod /hpf (Few); White Blood Cells, Urine 25-50 /hpf (0-5)
== END | disposition home or self-care (01) ==
LOC: LAB SHORT 08:00
PROVIDERS: Family Medicine
DX: N39.0 Urinary tract infection, site not specified (principal)
CPT/HCPCS: 81001; 87077; 87086; 87186

== ENCOUNTER → 2022-04-12 | Outpatient (CLI) | payer OTHER ==
[2022-04-12 18:37] LABS: Source, Urine Clean Catch
[2022-04-12 19:30] LABS: Appearance, Urine Hazy (Clear); Bilirubin, Urine Neg (Neg); Blood, Urine 2+ (Neg); Glucose Qualitative, Urine Neg (Neg); Ketones, Urine Neg (Neg); Leukocyte Esterase, Urine 3+ (Neg); Nitrite, Urine Pos (Neg); Protein, Urine Neg (Neg); Urobilinogen, Urine NORM (Normal)
[2022-04-12 19:43] LABS: Color, Urine Pale Yellow (P-Yellow)
[2022-04-12 19:44] LABS: White Blood Cells, Urine 25-50 /hpf (0-5)
[2022-04-12 19:45] LABS: Bacteria Many /hpf; Red Blood Cells, Urine 0-2 /hpf (0-2); Squamous Epithelial Cells Rare /hpf (Few)
== END | disposition home or self-care (01) ==
LOC: LAB SHORT 18:35 → LAB 18:35
PROVIDERS: Family Medicine
DX: N39.0 Urinary tract infection, site not specified (principal)
CPT/HCPCS: 81001; 87077; 87086; 87186

== ENCOUNTER → 2022-05-26 | Outpatient (CLI) | payer OTHER | END | disposition home or self-care (01) | LOC: LAB 20:30 → LAB SHORT 20:30 | DX: N39.0 Urinary tract infection, site not specified (principal) | CPT/HCPCS: 87077; 87086; 87186 ==

== ENCOUNTER → 2022-06-15 | Outpatient (CLI) | payer OTHER ==
[2022-06-16 15:40] LABS: Appearance, Urine Clear (Clear); Bilirubin, Urine Neg (Neg); Blood, Urine Neg (Neg); Color, Urine Yellow (P-Yellow); Glucose Qualitative, Urine Neg (Neg); Ketones, Urine Neg (Neg); Leukocyte Esterase, Urine 1+ (Neg); Nitrite, Urine Neg (Neg); Protein, Urine Neg (Neg); Source, Urine Clean Catch; Urobilinogen, Urine NORM (Normal); pH, Urine 6.5 (5.0-8.0)
[2022-06-16 16:10] LABS: Bacteria Few /hpf; Red Blood Cells, Urine 0-2 /hpf (0-2); Squamous Epithelial Cells Few /hpf (Few); White Blood Cells, Urine 0-2 /hpf (0-5)
== END | disposition home or self-care (01) ==
LOC: LAB SHORT 07:45
PROVIDERS: Family Medicine
DX: N39.0 Urinary tract infection, site not specified (principal)
CPT/HCPCS: 81001; 87077; 87086; 87186

== ENCOUNTER → 2022-07-23 | Outpatient (CLI) | payer OTHER ==
[2022-07-23 13:19] LABS: BASOPHILS ABSOLUTE AUTO 0.04 K/mm3 (0.00-0.23); BASOPHILS PERCENT AUTO 1 % (0-2); EOSINOPHILS ABSOLUTE AUTO 0.19 K/mm3 (0.00-0.68); EOSINOPHILS PERCENT AUTO 3 % (0-6); Hematocrit 37.1 % (33.0-51.0); Hemoglobin 11.5 g/dL (11.5-16.0); IMMATURE GRAN ABSOLUTE AUTO 0.01 K/mm3 (0.00-0.10); IMMATURE GRAN PERCENT AUTO 0 % (0-1); LYMPHOCYTES ABSOLUTE AUTO 1.11 K/mm3 (0.84-5.20); LYMPHOCYTES PERCENT AUTO 19 % (21-46); MONOCYTES PERCENT AUTO 12 % (4-13); Mean Corpuscular HGB 28.4 pg (26.0-34.0); Mean Corpuscular Volume 92 fL (80-100); Mean Platelet Volume 11.9 fL (9.1-12.4); NEUTROPHILS ABSOLUTE AUTO 3.76 K/mm3 (1.96-9.15); NEUTROPHILS PERCENT AUTO 65 % (41-73); Platelet Count 269 K/mm3 (150-400); RDW Coefficient Variation 14.8 % (11.7-14.2); RDW Standard Deviation 50.3 fL (35.1-46.3); Red Blood Cell Count 4.05 M/mm3 (3.80-5.20); White Blood Cell Count 5.81 K/mm3 (4.00-11.30)
[2022-07-23 13:28] LABS: Albumin, Blood 3.2 g/dL (3.4-5.0); Albumin/Globulin Ratio 0.9 (0.8-1.8); Bilirubin, Total 0.5 mg/dL (0.1-1.0); Bun/Creatinine Ratio 26.3 (12.0-20.0); Calcium, Blood 8.8 mg/dL (8.5-10.1); Creatinine, Blood 0.69 mg/dL (0.40-1.00); Globulin, Blood 3.5 g/dL (2.2-4.0); Potassium, Blood 4.3 mmol/L (3.5-5.5); Thyroid Stimulating Hormone 0.158 uIU/mL (0.360-4.800); Thyroxine (T4) 11.7 ug/dL (4.8-13.9); Total Protein, Blood 6.7 g/dL (6.4-8.2)
== END | disposition home or self-care (01) ==
LOC: LAB SHORT 09:33 → LAB 09:33
PROVIDERS: Family Medicine
DX: E03.9 Hypothyroidism, unspecified (principal); E78.2 Mixed hyperlipidemia; I10 Essential (primary) hypertension
CPT/HCPCS: 80053; 84436; 84443; 85025

== ENCOUNTER → 2022-08-16 | Outpatient (CLI) | payer OTHER ==
[2022-08-17 18:56] LABS: Source, Urine Clean Catch
[2022-08-17 19:22] LABS: Appearance, Urine Clear (Clear); Bilirubin, Urine Neg (Neg); Blood, Urine Neg (Neg); Color, Urine Yellow (P-Yellow); Glucose Qualitative, Urine Neg (Neg); Ketones, Urine Neg (Neg); Leukocyte Esterase, Urine Neg (Neg); Nitrite, Urine Neg (Neg); Protein, Urine Neg (Neg); Urobilinogen, Urine NORM (Normal); pH, Urine 6.5 (5.0-8.0)
== END ==
LOC: LAB 17:00 → LAB SHORT 17:00
PROVIDERS: Family Medicine
DX: N39.0 Urinary tract infection, site not specified (principal)
CPT/HCPCS: 81003

== ENCOUNTER → 2022-10-11 | Outpatient (CLI) | payer OTHER ==
[2022-10-12 18:59] LABS: Source, Urine Clean Catch
[2022-10-12 19:33] LABS: Appearance, Urine Hazy (Clear); Bilirubin, Urine Neg (Neg); Blood, Urine 1+ (Neg); Glucose Qualitative, Urine Neg (Neg); Ketones, Urine Neg (Neg); Leukocyte Esterase, Urine 3+ (Neg); Nitrite, Urine Pos (Neg); Protein, Urine Neg (Neg); Specific Gravity, Urine 1.015 (1.003-1.022); Urobilinogen, Urine NORM (Normal); pH, Urine 6.5 (5.0-8.0)
[2022-10-12 19:58] LABS: Color, Urine Pale Yellow (P-Yellow)
[2022-10-12 19:59] LABS: White Blood Cells, Urine 25-50 /hpf (0-5)
[2022-10-12 20:00] LABS: Bacteria Many /hpf; Red Blood Cells, Urine 0-2 /hpf (0-2); Squamous Epithelial Cells Few /hpf (Few)
== END | disposition home or self-care (01) ==
LOC: LAB SHORT 13:00 → LAB 13:00
PROVIDERS: Family Medicine
DX: N39.0 Urinary tract infection, site not specified (principal)
CPT/HCPCS: 81001; 87077; 87086; 87186

== ENCOUNTER → 2022-11-04 | Outpatient (CLI) | payer OTHER ==
[2022-11-04 18:23] LABS: Source, Urine Clean Catch
[2022-11-04 19:20] LABS: Appearance, Urine Clear (Clear); Bilirubin, Urine Neg (Neg); Blood, Urine Neg (Neg); Glucose Qualitative, Urine Neg (Neg); Ketones, Urine Neg (Neg); Leukocyte Esterase, Urine Neg (Neg); Nitrite, Urine Neg (Neg); Protein, Urine Neg (Neg); Urobilinogen, Urine NORM (Normal)
[2022-11-04 19:30] LABS: Color, Urine Pale Yellow (P-Yellow)
== END | disposition home or self-care (01) ==
LOC: LAB SHORT 13:15
PROVIDERS: Family Medicine
DX: N39.0 Urinary tract infection, site not specified (principal)
CPT/HCPCS: 81003

== ENCOUNTER → 2022-11-05 | Outpatient (CLI) | payer OTHER ==
[2022-11-05 16:21] LABS: Thyroid Stimulating Hormone 2.01 uIU/mL (0.360-4.800); Thyroxine (T4) 8.4 ug/dL (4.8-13.9)
== END | disposition home or self-care (01) ==
LOC: LAB SHORT 09:11
PROVIDERS: Family Medicine
DX: E03.9 Hypothyroidism, unspecified (principal)
CPT/HCPCS: 84436; 84443

== ENCOUNTER → 2022-11-11 | Outpatient (CLI) | payer OTHER ==
[2022-11-11 19:12] LABS: Source, Urine Clean Catch
[2022-11-11 19:43] LABS: Appearance, Urine Clear (Clear); Bilirubin, Urine Neg (Neg); Blood, Urine 1+ (Neg); Color, Urine Yellow (P-Yellow); Glucose Qualitative, Urine Neg (Neg); Ketones, Urine Neg (Neg); Leukocyte Esterase, Urine Neg (Neg); Nitrite, Urine Pos (Neg); Protein, Urine Neg (Neg); Specific Gravity, Urine 1.015 (1.003-1.022); Urobilinogen, Urine NORM (Normal)
[2022-11-11 19:56] LABS: Bacteria Many /hpf; Red Blood Cells, Urine 0-2 /hpf (0-2); Squamous Epithelial Cells Few /hpf (Few)
== END | disposition home or self-care (01) ==
LOC: LAB 08:20 → LAB SHORT 08:20
PROVIDERS: Family Medicine
DX: N39.0 Urinary tract infection, site not specified (principal)
CPT/HCPCS: 81001; 87077; 87086; 87186

== ENCOUNTER → 2022-12-21 | Outpatient (CLI) | payer OTHER ==
[2022-12-21 18:28] LABS: Source, Urine Clean Catch
[2022-12-21 19:11] LABS: Appearance, Urine Clear (Clear); Bilirubin, Urine Neg (Neg); Blood, Urine Neg (Neg); Color, Urine Yellow (P-Yellow); Glucose Qualitative, Urine Neg (Neg); Ketones, Urine Neg (Neg); Leukocyte Esterase, Urine 3+ (Neg); Nitrite, Urine Pos (Neg); Protein, Urine Neg (Neg); Specific Gravity, Urine 1.005 (1.003-1.022); Urobilinogen, Urine NORM (Normal)
[2022-12-21 19:44] LABS: Bacteria Many /hpf; Red Blood Cells, Urine 0-2 /hpf (0-2); Squamous Epithelial Cells Few /hpf (Few)
== END | disposition home or self-care (01) ==
LOC: LAB SHORT 13:00 → LAB 13:00
PROVIDERS: Family Medicine
DX: N39.0 Urinary tract infection, site not specified (principal)
CPT/HCPCS: 81001; 87077; 87086; 87186

== ENCOUNTER → 2023-01-07 | Outpatient (CLI) | payer OTHER ==
[2023-01-07 13:47] LABS: Source, Urine Clean Catch
[2023-01-07 14:43] LABS: Bilirubin, Urine Neg (Neg); Blood, Urine 2+ (Neg); Color, Urine Yellow (P-Yellow); Glucose Qualitative, Urine Neg (Neg); Ketones, Urine Neg (Neg); Leukocyte Esterase, Urine 1+ (Neg); Nitrite, Urine Neg (Neg); Protein, Urine 1+ (Neg); Specific Gravity, Urine 1.015 (1.003-1.022); Urobilinogen, Urine NORM (Normal)
[2023-01-07 15:07] LABS: Appearance, Urine Hazy (Clear)
[2023-01-07 15:08] LABS: Amorphous Light (0-Heavy); Bacteria Mod /hpf; Mucus Light (0-Heavy); Squamous Epithelial Cells Few /hpf (Few)
== END | disposition home or self-care (01) ==
LOC: LAB SHORT 13:45
PROVIDERS: Family Medicine
DX: N39.0 Urinary tract infection, site not specified (principal)
CPT/HCPCS: 81001; 87077; 87086; 87186

== ENCOUNTER → 2023-06-07 | Outpatient (CLI) | payer OTHER ==
[2023-06-07 17:09] LABS: Source, Urine Clean Catch
[2023-06-07 18:10] LABS: Appearance, Urine Hazy (Clear); Bilirubin, Urine Neg (Neg); Blood, Urine 1+ (Neg); Color, Urine Yellow (P-Yellow); Glucose Qualitative, Urine Neg (Neg); Ketones, Urine Neg (Neg); Leukocyte Esterase, Urine 3+ (Neg); Nitrite, Urine Pos (Neg); Protein, Urine Neg (Neg); Specific Gravity, Urine 1.015 (1.003-1.022); Urobilinogen, Urine NORM (Normal)
[2023-06-07 18:19] LABS: Bacteria Many /hpf; Squamous Epithelial Cells Few /hpf (Few)
== END | disposition home or self-care (01) ==
LOC: LAB 15:00 → LAB SHORT 15:00
PROVIDERS: Family Medicine
DX: N39.0 Urinary tract infection, site not specified (principal)
CPT/HCPCS: 81001; 87077; 87086; 87186

== ENCOUNTER → 2023-06-30 | Outpatient (CLI) | payer OTHER ==
[2023-07-02 14:28] LABS: Source, Urine Clean Catch
[2023-07-02 15:09] LABS: Appearance, Urine Hazy (Clear); Bilirubin, Urine Neg (Neg); Blood, Urine Neg (Neg); Glucose Qualitative, Urine Neg (Neg); Ketones, Urine Neg (Neg); Leukocyte Esterase, Urine 3+ (Neg); Nitrite, Urine Neg (Neg); Protein, Urine Neg (Neg); Urobilinogen, Urine NORM (Normal)
[2023-07-02 15:24] LABS: Color, Urine Pale Yellow (P-Yellow)
[2023-07-02 15:26] LABS: Amorphous Light (0-Heavy); Bacteria Many /hpf; Mucus Light (0-Heavy); Red Blood Cells, Urine 0-2 /hpf (0-2); Squamous Epithelial Cells Rare /hpf (Few); Transitional Epithelial Cells Rare /hpf (0-Rare); White Blood Cells, Urine 50-100 /hpf (0-5)
== END ==
LOC: LAB 09:45 → LAB SHORT 09:45
PROVIDERS: Family Medicine
DX: N39.0 Urinary tract infection, site not specified (principal)
CPT/HCPCS: 81001; 87077; 87086; 87186

== ENCOUNTER 2023-07-16 17:07 | Emergency (ER) | payer OTHER ==
[~2023-07-16] VITALS: Ht 167.6 cm; Wt 83.1 kg
[2023-07-16 20:07] VITALS: BP 118/78
== END 2023-07-16 22:10 | disposition home or self-care (01) ==
LOC: ER 17:07
DX: R05.9 Cough, unspecified (principal); Z88.1 Allergy status to other antibiotic agents; Z88.8 Allergy status to other drugs, medicaments and biological substances; Z79.82 Long term (current) use of aspirin; Z79.890 Hormone replacement therapy; Z79.899 Other long term (current) drug therapy
CPT/HCPCS: 71045; 99285-25

== ENCOUNTER → 2023-10-12 | Outpatient (CLI) | payer OTHER ==
[2023-10-14 18:12] LABS: Source, Urine Clean Catch
[2023-10-14 19:29] LABS: Appearance, Urine Hazy (Clear); Bilirubin, Urine Neg (Neg); Blood, Urine 1+ (Neg); Color, Urine Yellow (P-Yellow); Glucose Qualitative, Urine Neg (Neg); Ketones, Urine Neg (Neg); Leukocyte Esterase, Urine 3+ (Neg); Nitrite, Urine Pos (Neg); Protein, Urine Neg (Neg); Specific Gravity, Urine 1.015 (1.003-1.022); Urobilinogen, Urine NORM (Normal)
[2023-10-14 19:39] LABS: Red Blood Cells, Urine 0-2 /hpf (0-2); Squamous Epithelial Cells Rare /hpf (Few)
[2023-10-14 19:40] LABS: Bacteria Many /hpf
== END ==
LOC: LAB SHORT 18:07 → LAB 18:07
PROVIDERS: Family Medicine
DX: N39.0 Urinary tract infection, site not specified (principal)
CPT/HCPCS: 81001; 87077; 87086; 87186

== ENCOUNTER → 2023-11-03 | Outpatient (CLI) | payer OTHER ==
[2023-11-04 12:41] LABS: Source, Urine Clean Catch
[2023-11-04 13:44] LABS: Appearance, Urine Clear (Clear); Bilirubin, Urine Neg (Neg); Blood, Urine 2+ (Neg); Color, Urine Yellow (P-Yellow); Glucose Qualitative, Urine Neg (Neg); Ketones, Urine Neg (Neg); Leukocyte Esterase, Urine 2+ (Neg); Nitrite, Urine Neg (Neg); Protein, Urine Neg (Neg); Urobilinogen, Urine NORM (Normal)
[2023-11-04 13:58] LABS: Amorphous Light (0-Heavy); Bacteria Few /hpf; Squamous Epithelial Cells Few /hpf (Few)
== END ==
LOC: LAB SHORT 12:38 → LAB 12:38
PROVIDERS: Family Medicine
DX: N39.0 Urinary tract infection, site not specified (principal)
CPT/HCPCS: 81001; 87086

== ENCOUNTER → 2023-11-08 | Outpatient (CLI) | payer OTHER ==
[2023-11-08 15:28] LABS: Source, Urine Clean Catch
[2023-11-08 16:46] LABS: Appearance, Urine Clear (Clear); Bilirubin, Urine Neg (Neg); Blood, Urine Neg (Neg); Color, Urine Yellow (P-Yellow); Glucose Qualitative, Urine Neg (Neg); Ketones, Urine Neg (Neg); Leukocyte Esterase, Urine 1+ (Neg); Nitrite, Urine Neg (Neg); Protein, Urine Neg (Neg); Urobilinogen, Urine NORM (Normal)
[2023-11-08 16:56] LABS: Amorphous Light (0-Heavy); Bacteria Few /hpf; Hyaline Casts 0-2 /lpf (0-2); Squamous Epithelial Cells Few /hpf (Few)
== END | disposition home or self-care (01) ==
LOC: LAB SHORT 15:25 → LAB 15:25
PROVIDERS: Family Medicine
DX: N39.0 Urinary tract infection, site not specified (principal)
CPT/HCPCS: 81001; 87086

== ENCOUNTER 2023-12-08 02:32 | Emergency (ER) | payer OTHER ==
[~2023-12-08] VITALS: Ht 167.6 cm; Wt 99.8 kg
[2023-12-08] MEDS ORDERED: ACET500 PO (04:24)
[2023-12-08 05:32] VITALS: BP 153/66
== END 2023-12-08 05:32 | disposition home or self-care (01) ==
LOC: ER 02:32
DX: S00.83XA Contusion of other part of head, initial encounter (principal); W06.XXXA Fall from bed, initial encounter; Z88.1 Allergy status to other antibiotic agents; Z88.2 Allergy status to sulfonamides; Z88.8 Allergy status to other drugs, medicaments and biological substances; Z79.899 Other long term (current) drug therapy; Z79.82 Long term (current) use of aspirin; E03.9 Hypothyroidism, unspecified; E78.5 Hyperlipidemia, unspecified
CPT/HCPCS: 70450; 70486; 72125; 93005; 93010; 99284-25